=== PATIENT | female | born 1985 | race Caucasian/White ===

== ENCOUNTER 2020-02-13 07:33 | Observation (INO) | payer OTHER ==
--- NOTE | 2020-02-13 07:41 | ERPHSYRPT ---
- History of Present Illness Time Seen by Provider: 02/13/20 07:40 Historian: patient Exam Limitations: no limitations Physician History: This is a 34-year-old diabetic white female patient of Dr. Quach who presents with right upper quadrant abdominal pain described as sharp and burning without significant radiation and associated vomiting. Patient has had episodes in the past but not as bad as this 1. Within the last 2 years patient has had a negative gallbladder ultrasound and a normal HIDA scan. Patient has vomited several times since 11 PM last night. She denies chest pain, shortness of breath. She has had some diarrhea and bloating belching gassiness symptoms. Timing/Duration: yesterday Activities at Onset: none Quality: burning, sharpness Abdominal Pain Onset Location: RUQ Pain Radiation: no radiation Severity of Pain-Max: moderate Severity of Pain-Current: moderate Associated Symptoms: nausea, vomiting Previous symptoms: same symptoms as today Allergies/Adverse Reactions: No Known Drug Allergies Allergy (Verified 02/13/20 07:48) Home Medications: Citalopram Hydrobromide 20 mg* [ceLEXa 20 MG] 20 mg PO DAILY 07/23/19 [History] Metformin HCl 500 mg [Glucophage 500 MG] 500 mg PO BIDWM 07/23/19 [History] PANTOPRAZOLE 40 mg Tablet [Protonix 40MG Tablet] 40 mg PO QAM 02/13/20 [History] Semaglutide [Ozempic] 0.25 mg SQ WEEKLY 02/13/20 [History] Hx Influenza Vaccination/Date Given: No Travel Risk - International Travel Have you traveled outside of the country in past 3 weeks: No - Coronavirus Screening Are you exhibiting any of the following symptoms?: Yes Symptoms: Vomiting/Diarrhea Close contact with a COVID-19 positive Pt in past 14-21 Days: No - Review of Systems Constitutional: No Symptoms Eyes: No Symptoms Ears, Nose, & Throat: No Symptoms Respiratory: No Symptoms Cardiac: No Symptoms Abdominal/Gastrointestinal: Abdominal Pain, Nausea, Vomiting, Diarrhea Genitourinary Symptoms: No Symptoms Musculoskeletal: No Symptoms Skin: No Symptoms Neurological: No Symptoms Psychological: No Symptoms Endocrine: No Symptoms Hematologic/Lymphatic: No Symptoms Immunological/Allergic: No Symptoms All Other Systems: Reviewed and Negative - Past Medical History Pertinent Past Medical History: Yes Neurological History: No Pertinent History ENT History: Other Cardiac History: No Pertinent History Respiratory History: No Pertinent History Endocrine Medical History: Diabetes Type II Musculoskeletal History: No Pertinent History GI Medical History: No Pertinent History History: No Pertinent History Psycho-Social History: No Pertinent History Female Reproductive Disorders: No Pertinent History Other Medical History: sinus problems - Past Surgical History Past Surgical History: Yes Female Surgical History: Section Other Surgical History: sinus surgery - Social History Smoking Status: Never smoker Exposure to second hand smoke: No Drug Use: none Patient Lives Alone: No - Nursing Vital Signs Nursing Vital Signs: Initial Vital Signs Temperature 97.9 F 02/13/20 07:36 Pulse Rate 97 H 02/13/20 07:36 Respiratory Rate 20 02/13/20 07:36 Blood Pressure 123/87 02/13/20 07:36 O2 Sat by Pulse Oximetry 99 02/13/20 07:36 Pain Scale Pain Intensity 7 - Physical Exam General Appearance: mild distress, alert, anxiety Eye Exam: PERRL/EOMI, eyes nml inspection Ears, Nose, Throat Exam: normal ENT inspection, moist mucous membranes Neck Exam: normal inspection, non-tender, supple, full range of motion Respiratory Exam: normal breath sounds, lungs clear, airway intact, No chest tenderness, No respiratory distress Cardiovascular Exam: regular rate/rhythm, normal heart sounds, normal peripheral pulses Gastrointestinal/Abdomen Exam: soft, normal bowel sounds, tenderness (Right upper quadrant) Pelvic Exam: not done Rectal Exam: not done Back Exam: normal inspection, normal range of motion, No CVA tenderness, No vertebral tenderness Extremity Exam: normal inspection, normal range of motion, pelvis stable Neurologic Exam: alert, oriented x 3, 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, 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 as tested Skin Exam: normal color, warm, dry Lymphatic Exam: No adenopathy SpO2 Interpretation: normal O2 Delivery: Room Air - Course Nursing assessment & vital signs reviewed: Yes Ordered Tests: Active Orders 24 hr Category Date Time Status IV Insertion STAT Care 02/13/20 07:42 Active NPO (ED) STAT Care 02/13/20 07:42 Active ABDOMEN AND PELVIS W/0 CONTRAS [CT] Stat Exams 02/13/20 07:41 Completed GALLBLADDER [US] Stat Exams 02/13/20 08:41 Completed HEPATOBILIARY W/CCK [NUCMED] Stat Exams 02/13/20 08:40 Completed AMYLASE Stat Lab 02/13/20 07:46 Completed CBC W DIFF Stat Lab 02/13/20 07:46 Completed CMP Stat Lab 02/13/20 07:46 Completed HCG,QUALITATIVE URINE Stat Lab 02/13/20 07:51 Completed LIPASE Stat Lab 02/13/20 07:46 Completed Lactic Acid Stat Lab 02/13/20 07:41 Completed UA W/RFX UR CULTURE Stat Lab 02/13/20 07:51 Completed Transfer Order Routine Transfer 02/13/20 Ordered Medication Summary Discontinued Medications Generic Name Dose Route Start Last Admin Trade Name Freq PRN Reason Stop Dose Admin Hydromorphone HCl 1 mg 02/13/20 07:49 02/13/20 07:57 Hydromorphone 1 Mg/Ml Ampule IV 02/13/20 07:50 1 mg STAT ONE Administration Hydromorphone HCl Confirm 02/13/20 07:51 Hydromorphone 1 Mg/Ml Ampule Administered 02/13/20 07:52 Dose 1 mg .ROUTE .STK-MED ONE Sodium Chloride 1,000 mls @ 999 mls/hr 02/13/20 07:42 02/13/20 09:14 Sodium Chloride 0.9% 1000 Ml IV 02/13/20 08:42 Infused .Q1H1M STA Infusion Sodium Chloride Confirm 02/13/20 07:51 Sodium Chloride 0.9% 1000 Ml Administered 02/13/20 07:52 Dose 1,000 mls @ ud .ROUTE .STK-MED ONE Ondansetron HCl 4 mg 02/13/20 07:42 02/13/20 07:58 Zofran 4 Mg/2 Ml Vial IV 02/13/20 07:43 4 mg STAT ONE Administration Ondansetron HCl Confirm 02/13/20 07:51 Zofran 4 Mg/2 Ml Vial Administered 02/13/20 07:52 Dose 4 mg .ROUTE .STK-MED ONE Ondansetron HCl 4 mg 02/13/20 15:22 02/13/20 15:47 Zofran 4 Mg/2 Ml Vial IV 02/13/20 15:23 4 mg STAT ONE Administration Pantoprazole Sodium 40 mg 02/13/20 07:48 02/13/20 07:58 Protonix 40 Mg Iv IV 02/13/20 07:49 40 mg STAT ONE Administration Pantoprazole Sodium Confirm 02/13/20 07:51 Protonix 40 Mg Iv Administered 02/13/20 07:52 Dose 40 mg IV .STK-MED ONE Lab/Rad Data: Laboratory Result Diagrams 02/13/20 07:46 02/13/20 07:46 Laboratory Results 02/13/20 02/13/20 02/13/20 Range/Units 07:51 07:51 07:46 WBC (4.0-10.5) K/mm3 RBC (4.1-5.4) M/mm3 Hgb (12.0-16.0) gm/dl Hct (35-47) % MCV (78-100) fl MCH (26-32) pg MCHC (32-36) g/dl RDW (11.5-14.0) % Plt Count (150-450) K/mm3 MPV (7.5-11.0) fl Gran % (36.0-66.0) % Eos # (Auto) (0-0.5) Absolute Lymphs (auto) (1.0-4.6) Absolute Monos (auto) (0.0-1.3) Lymphocytes % (24.0-44.0) % Monocytes % (0.0-12.0) % Eosinophils % (0.00-5.0) % Basophils % (0.0-0.4) % Absolute Granulocytes (1.4-6.9) Basophils # (0-0.4) Sodium 138 (137-145) mmol/L Potassium 4.0 (3.5-5.1) mmol/L Chloride 104 (98-107) mmol/L Carbon Dioxide 25 (22-30) mmol/L Anion Gap 11.7 (5-15) MEQ/L BUN 6 L (7-17) mg/dL Creatinine 0.63 (0.52-1.04) mg/dL Estimated GFR > 60.0 ML/MIN Glucose 100 (74-106) mg/dL Lactic Acid (0.4-2.0) Calcium 9.9 (8.4-10.2) mg/dL Total Bilirubin 0.70 (0.2-1.3) mg/dL AST 33 (14-36) U/L ALT 30 (0-35) U/L Alkaline Phosphatase 78 (38-126) U/L Serum Total Protein 7.7 (6.3-8.2) g/dL Albumin 4.6 (3.5-5.0) g/dL Amylase 71 (30-110) U/L Lipase 64 (23-300) U/L Urine Color YELLOW (YELLOW) Urine Appearance SLIGHTLY CLOUDY (CLEAR) Urine pH 6.0 (5-6) Ur Specific [place] 1.021 (1.005-1.025) Urine Protein 30 (Negative) Urine Ketones SMALL (NEGATIVE) Urine Blood NEGATIVE (0-5) Ricardo/ul Urine Nitrite NEGATIVE (NEGATIVE) Urine Bilirubin NEGATIVE (NEGATIVE) Urine Urobilinogen 2 (0-1) mg/dL Ur Leukocyte Esterase NEGATIVE (NEGATIVE) Urine WBC (Auto) 0-2 (0-5) /HPF Urine RBC (Auto) 0-2 (0-2) /HPF U Epithel Cells (Auto) RARE (FEW) /HPF Urine Bacteria (Auto) NONE (NEGATIVE) /HPF Amorphous Crystals FEW (NEGATIVE) /HPF Urine Mucus (Auto) MANY (NEGATIVE) /HPF Urine Culture Reflexed NO (NO) Urine Glucose NEGATIVE (NEGATIVE) mg/dL Urine HCG, Qual NEGATIVE (Negative) 02/13/20 02/13/20 Range/Units 07:46 07:41 WBC 8.0 (4.0-10.5) K/mm3 RBC 5.26 (4.1-5.4) M/mm3 Hgb 14.5 (12.0-16.0) gm/dl Hct 44.1 (35-47) % MCV 83.8 (78-100) fl MCH 27.6 (26-32) pg MCHC 32.9 (32-36) g/dl RDW 13.7 (11.5-14.0) % Plt Count 244 (150-450) K/mm3 MPV 11.0 (7.5-11.0) fl Gran % 80.7 H (36.0-66.0) % Eos # (Auto) 0.12 (0-0.5) Absolute Lymphs (auto) 1.10 (1.0-4.6) Absolute Monos (auto) 0.31 (0.0-1.3) Lymphocytes % 13.8 L (24.0-44.0) % Monocytes % 3.9 (0.0-12.0) % Eosinophils % 1.5 (0.00-5.0) % Basophils % 0.1 (0.0-0.4) % Absolute Granulocytes 6.46 (1.4-6.9) Basophils # 0.01 (0-0.4) Sodium (137-145) mmol/L Potassium (3.5-5.1) mmol/L Chloride (98-107) mmol/L Carbon Dioxide (22-30) mmol/L Anion Gap (5-15) MEQ/L BUN (7-17) mg/dL Creatinine (0.52-1.04) mg/dL Estimated GFR ML/MIN Glucose (74-106) mg/dL Lactic Acid 0.9 (0.4-2.0) Calcium (8.4-10.2) mg/dL Total Bilirubin (0.2-1.3) mg/dL AST (14-36) U/L ALT (0-35) U/L Alkaline Phosphatase (38-126) U/L Serum Total Protein (6.3-8.2) g/dL Albumin (3.5-5.0) g/dL Amylase (30-110) U/L Lipase (23-300) U/L Urine Color (YELLOW) Urine Appearance (CLEAR) Urine pH (5-6) Ur Specific [place] (1.005-1.025) Urine Protein (Negative) Urine Ketones (NEGATIVE) Urine Blood (0-5) Ricardo/ul Urine Nitrite (NEGATIVE) Urine Bilirubin (NEGATIVE) Urine Urobilinogen (0-1) mg/dL Ur Leukocyte Esterase (NEGATIVE) Urine WBC (Auto) (0-5) /HPF Urine RBC (Auto) (0-2) /HPF U Epithel Cells (Auto) (FEW) /HPF Urine Bacteria (Auto) (NEGATIVE) /HPF Amorphous Crystals (NEGATIVE) /HPF Urine Mucus (Auto) (NEGATIVE) /HPF Urine Culture Reflexed (NO) Urine Glucose (NEGATIVE) mg/dL Urine HCG, Qual (Negative) - Progress Progress: improved, pain not gone completely, re-examined Progress Note: 02/13/20 09:16 CAT scan of the abdomen pelvis reveals a small hiatal hernia. No other acute intra-abdominal abnormalities appreciated 02/13/20 16:04 Medical decision making: This patient has right upper quad abdominal pain with nausea vomiting bloating belching gassy symptoms. Her CAT scan did not show anything acute. The gallbladder ultrasound did not show any evidence of any acute cholecystitis and there is no cholelithiasis present. The HIDA scan performed today re-created her symptoms. In addition, her HIDA scan gallbladder ejection fraction was 15% which is much lower than the 50% on a prior HIDA scan approximately a year and a half ago. Patient would like us to contact the surgeon to see if it is possible for her gallbladder removed sooner rather than later. We put a call into Dr. Bari Barrera, general surgeon. He is in surgery at this time and he will call us back. Discussed with : Other (floyd barrera) Counseled pt/family regarding: lab results, diagnosis, need for follow-up, rad results - Departure Departure Disposition: Observation Clinical Impression: Dyskinesia of gallbladder Condition: Stable Critical Care Time: No Referrals: PATRICIA QUACH MD [Primary Care Provider] -
[2020-02-13] MEDS ORDERED: Zofran 4 MG/2 ML VIAL IV ONE ×2 (07:42→15:22)
[2020-02-13] MEDS ORDERED: Sodium Chloride 0.9% 1000 ML 1,000 ML IV STA (07:42)
[2020-02-13] MEDS ORDERED: PROTONIX 40 MG IV IV ONE ×3 (07:48→17:44)
[2020-02-13] MEDS ORDERED: Hydromorphone 1 mg/ml Ampule IV ONE (07:49)
[2020-02-13] MEDS ORDERED: Hydromorphone 1 mg/ml Ampule ONE (07:51)
[2020-02-13] MEDS ORDERED: Zofran 4 MG/2 ML VIAL ONE ×2 (07:51→17:44)
[2020-02-13] MEDS ORDERED: Sodium Chloride 0.9% 1000 ML 1,000 ML ONE ×2 (07:51→17:45)
[2020-02-13 07:58] LABS: Absolute Neutrophil Ct (ANC) 6.46 (1.4-6.9); BASOPHIL % 0.1 % (0.0-0.4); Basophil (Absolute #) 0.01 (0-0.4); Eosinophil % 1.5 % (0.00-5.0); Eosinophil (Absolute #) 0.12 (0-0.5); Hematocrit 44.1 % (35-47); Hemoglobin 14.5 gm/dl (12.0-16.0); Lymphocytes % 13.8 % (24.0-44.0); Mean Cell Volume 83.8 fl (78-100); Mean Corpuscular Hemoglobin 27.6 pg (26-32); Mean Corpuscular Hgb Concent. 32.9 g/dl (32-36); Monocyte (Absolute #) 0.31 (0.0-1.3); Monocytes % 3.9 % (0.0-12.0); Neutrophil % 80.7 % (36.0-66.0); Platelet Count 244 K/mm3 (150-450); Red Blood Count 5.26 M/mm3 (4.1-5.4); Red Cell Distribution Width 13.7 % (11.5-14.0)
[2020-02-13 08:04] LABS: Amourphous Crystal FEW /HPF (NEGATIVE); Appearance SLIGHTLY CLOUDY (CLEAR); Bilirubin NEGATIVE (NEGATIVE); Blood NEGATIVE Ery/ul (0-5); Epithelial Cells RARE /HPF (FEW); Glucose NEGATIVE (NEGATIVE); Ketones SMALL (NEGATIVE); Leukocyte Esterase NEGATIVE (NEGATIVE); Mucus MANY /HPF (NEGATIVE); Nitrite NEGATIVE (NEGATIVE); Protein,Urine Dip 30 (Negative); RBC 0-2 /HPF (0-2); Specific Gravity 1.021 (1.005-1.025); Urobilinogen 2 mg/dL (0-1); WBC 0-2 /HPF (0-5)
[2020-02-13 08:08] LABS: ALBUMIN 4.6 g/dL (3.5-5.0); ALKALINE PHOSPHATASE 78 U/L (38-126); AMYLASE 71 U/L (30-110); ANION GAP 11.7 MEQ/L (5-15); BLOOD UREA NITROGEN 6 mg/dL (7-17); CHLORIDE 104 mmol/L (98-107); Calcium 9.9 mg/dL (8.4-10.2); Carbon Dioxide 25 mmol/L (22-30); Creatinine 1 0.63 mg/dL (0.52-1.04); EST GLOMERULAR FILTRATION RATE > 60.0 ML/MIN; Glucose 100 mg/dL (74-106); LIPASE 64 U/L (23-300); SGOT/AST 33 U/L (14-36); SGPT/ALT 30 U/L (0-35); SODIUM 138 mmol/L (137-145); Total Protein 7.7 g/dL (6.3-8.2)
--- NOTE | 2020-02-13 08:38 | XRAY ---
Indication: Right upper quadrant pain and vomiting. Multiple contiguous axial images obtained through the abdomen and pelvis without contrast as ordered. Comparison: None Lung bases are clear. Heart is not enlarged. Small hiatal hernia. Noncontrasted stomach and bowel loops appear nonobstructed. Normal appendix. No free fluid/air. Fatty liver and a few phleboliths. Remaining liver, gallbladder, pancreas, spleen, adrenal glands, kidneys, ureters, bladder, uterus, and aorta appear unremarkable for noncontrast exam. Osseous structures intact. Impression: 1. Small hiatal hernia and fatty liver. 2. Remaining CT abdomen/pelvis without contrast exam is negative.
--- NOTE | 2020-02-13 09:27 | XRAY ---
Indication: Right upper quadrant pain. Nausea and vomiting. Two-dimensional gallbladder sonogram performed. Comparison: None Pancreas not well-seen due to overlying bowel gas. Gallbladder normally distended without gallstones, wall thickening, or pericholecystic fluid. Common bile duct measures 4.1 mm. No intrahepatic biliary distention. Mild fatty echogenic liver without focal solid/cystic mass or ascites. Right kidney measures 10.3 cm in length and sonographically normal. Impression: Pancreas not well visualized. Fatty liver. Remaining gallbladder sonogram is negative.
--- NOTE | 2020-02-13 15:26 | XRAY ---
Indication: Right upper quadrant pain. Nausea and vomiting. Negative gallbladder sonogram. Comparison: None Patient received 5.8 mCi technetium 99 Choletec. Immediate anterior planar imaging was performed for 60 minutes. Normal hepatic activity on the first image. Normal biliary activity within 20 minutes. Normal gallbladder activity within 30 minutes. Normal biliary to bowel activity within 50 minutes. Patient then received 1.5 g of IV CCK slowly. Ejection fraction calculated 15%, low. Impression: 1. HIDA scan portion of the exam is normal. 2. Low ejection fraction 15%. Rule out chronic cholecystitis.
[2020-02-13] MEDS ORDERED: Sodium Chloride 0.9% 1000 ML 1,000 ML IV SCH (17:36)
[2020-02-13] MEDS ORDERED: Zofran 4 MG/2 ML VIAL IV PRN (17:36)
[2020-02-13] MEDS ORDERED: Phenergan 25 MG INJ ONE (18:21)
[2020-02-13] MEDS ORDERED: Phenergan 25 MG INJ IV PRN (18:21)
[2020-02-13] MEDS ORDERED: TYLENOL 325 MG ONE (18:24)
[2020-02-13] MEDS: DILAUDID 2 MG INJECTION IV PRN (18:32)
[2020-02-13] MEDS ORDERED: TYLENOL 325 MG PO PRN (18:36)
[2020-02-14] MEDS ORDERED: Lactated Ringers 1,000 ML IV SCH (06:00)
[2020-02-14] MEDS ORDERED: MEFOXIN 2 GM PREMIX** 2 GM/50 ML ML IV SCH (06:00)
[2020-02-14] MEDS ORDERED: Versed 2 MG/2 ML Injection ONE (07:37)
[2020-02-14] MEDS ORDERED: Zemuron 100 MG/10 ML ONE (07:37)
[2020-02-14] MEDS ORDERED: SUBLIMAZE 250 MCG/5 ML ONE (07:37)
[2020-02-14] MEDS ORDERED: DIPRIVAN 200 MG/20 ML IV ONE (07:37)
--- NOTE | 2020-02-14 08:10 | PCM.HP ---
History of Present Illness - Chief Complaint Chief Complaint: SYMPTOMATIC GALLBLADDER DYSKINESIA History of Present Illness: hx per chart review and d/w patient. 34yo dm2 th ruq pain, nausea nbnb emesis, through sunday worsened went to ed for workup. pain on exam, ct ok, us ok, labs ok, hida reproduced sx. after dilaudid phenergan last night pain finally improved. some present still. 1 year ago ruq pain with gerd issues somewhat similar. started PPI and sx totally resolved. US and hida negative at that time. no prior scopes per ed note. "This is a 34-year-old diabetic white female patient of Dr. Quach who presents with right upper quadrant abdominal pain described as sharp and burning without significant radiation and associated vomiting. Patient has had episodes in the past but not as bad as this 1. Within the last 2 years patient has had a negative gallbladder ultrasound and a normal HIDA scan. Patient has vomited several times since 11 PM last night. She denies chest pain, shortness of breath. She has had some diarrhea and bloating belching gassiness symptoms. Timing/Duration: yesterday Activities at Onset: none Quality: burning, sharpness Abdominal Pain Onset Location: RUQ Pain Radiation: no radiation Severity of Pain-Max: moderate Severity of Pain-Current: moderate Associated Symptoms: nausea, vomiting Previous symptoms: same symptoms as today Allergies/Adverse Reactions: No Known Drug Allergies Allergy (Verified 02/13/20 07:48) Home Medications: Citalopram Hydrobromide 20 mg* [ceLEXa 20 MG] 20 mg PO DAILY 07/23/19 [History] Metformin HCl 500 mg [Glucophage 500 MG] 500 mg PO BIDWM 07/23/19 [History] PANTOPRAZOLE 40 mg Tablet [Protonix 40MG Tablet] 40 mg PO QAM 02/13/20 [History] Semaglutide [Ozempic] 0.25 mg SQ WEEKLY 02/13/20 [History] Hx Influenza Vaccination/Date Given: No Travel Risk - International Travel Have you traveled outside of the country in past 3 weeks: No - Coronavirus Screening Are you exhibiting any of the following symptoms?: Yes Symptoms: Vomiting/Diarrhea Close contact with a COVID-19 positive Pt in past 14-21 Days: No - Review of Systems Constitutional: No Symptoms Eyes: No Symptoms Ears, Nose, & Throat: No Symptoms Respiratory: No Symptoms Cardiac: No Symptoms Abdominal/Gastrointestinal: Abdominal Pain, Nausea, Vomiting, Diarrhea Genitourinary Symptoms: No Symptoms Musculoskeletal: No Symptoms Skin: No Symptoms Neurological: No Symptoms Psychological: No Symptoms Endocrine: No Symptoms Hematologic/Lymphatic: No Symptoms Immunological/Allergic: No Symptoms All Other Systems: Reviewed and Negative - Past Medical History Pertinent Past Medical History: Yes Neurological History: No Pertinent History ENT History: Other Cardiac History: No Pertinent History Respiratory History: No Pertinent History Endocrine Medical History: Diabetes Type II Musculoskeletal History: No Pertinent History GI Medical History: No Pertinent History History: No Pertinent History Psycho-Social History: No Pertinent History Female Reproductive Disorders: No Pertinent History Other Medical History: sinus problems - Past Surgical History Past Surgical History: Yes Female Surgical History: Section Other Surgical History: sinus surgery - Social History Smoking Status: Never smoker Exposure to second hand smoke: No Drug Use: none Patient Lives Alone: No Medications & Allergies Home Medications: Home Medication List Citalopram Hydrobromide 20 mg* [ceLEXa 20 MG] 20 mg PO HS 07/23/19 [History Confirmed 02/13/20] Metformin HCl 500 mg [Glucophage 500 MG] 1,000 mg PO DAILY 07/23/19 [History Confirmed 02/13/20] PANTOPRAZOLE 40 mg Tablet [Protonix 40MG Tablet] 40 mg PO QAM 02/13/20 [History Confirmed 02/13/20] Semaglutide [Ozempic] 0.25 mg SQ WEEKLY 02/13/20 [History Confirmed 02/13/20] Allergies/Adverse Reactions: Allergies Allergy/AdvReac Type Severity Reaction Status Date / Time No Known Drug Allergies Allergy Verified 02/13/20 07:48 - Past Medical History Past Medical History: Yes Neurological History: No Pertinent History ENT History: Other Cardiac History: No Pertinent History Respiratory History: No Pertinent History Endocrine Medical History: Diabetes Type II Musculoskelatal History: No Pertinent History GI Medical History: GERD History: No Pertinent History Pyscho-Social History: Anxiety Reproductive Disorders: No Pertinent History Comment: sinus problems - Female History Hx Last Menstrual Period: injection Are you now?: No - Past Surgical History Past Surgical History: Yes Neuro Surgical History: No Pertinent History Cardiac History: No Pertinent History Respiratory Surgery: No Pertinent History GI Surgical History: No Pertinent History Female Surgical History: Section Other Surgical History: sinus surgery - Social History Smoking Status: Never smoker Exposure to second hand smoke: No Alcohol: Occasionally Drug Use: none - Physical Exam Vital Signs: Vital Signs - 24 hr Temp Pulse Resp BP Pulse Ox 02/14/20 07:19 97.8 F 66 16 102/50 97 02/14/20 06:40 97.4 F 69 16 102/50 96 02/14/20 06:00 97.4 F 69 16 96 02/14/20 04:05 97.4 F 69 16 87/52 96 02/14/20 04:00 16 02/14/20 03:41 16 102/55 02/14/20 00:00 16 02/13/20 23:49 97.4 F 67 16 102/55 96 02/13/20 20:00 14 02/13/20 18:01 98.3 F 66 20 133/78 97 02/13/20 17:43 98.3 F 66 20 133/78 97 02/13/20 16:03 97.6 F 71 18 127/91 98 02/13/20 15:20 75 18 127/91 99 02/13/20 13:12 63 15 111/75 98 02/13/20 12:45 63 16 110/76 97 02/13/20 11:02 97.6 F 66 18 112/79 98 02/13/20 10:07 97.6 F 71 20 121/80 97 02/13/20 09:12 97.8 F 71 18 112/76 98 General Appearance: no apparent distress, obese Neurologic Exam: alert, oriented x 3 Eye Exam: No scleral icterus Neck Exam: normal inspection Respiratory Exam: No respiratory distress, No accessory muscle use Cardiovascular Exam: regular rate/rhythm, No edema Gastrointestinal/Abdomen Exam: soft, tenderness, No distention, No organomegaly Pelvic Exam: not done Extremity Exam: normal inspection Skin Exam: normal color, warm, dry (abd obese, mild ttp ruq no r/g. no rudolph.) Results - Labs Lab/Micro Results: Lab Results-Last 24 Hours 02/13/20 02/13/20 02/13/20 Range/Units 07:46 07:51 07:51 Sodium 138 (137-145) mmol/L Potassium 4.0 (3.5-5.1) mmol/L Chloride 104 (98-107) mmol/L Carbon Dioxide 25 (22-30) mmol/L Anion Gap 11.7 (5-15) MEQ/L BUN 6 L (7-17) mg/dL Creatinine 0.63 (0.52-1.04) mg/dL Estimated GFR > 60.0 ML/MIN Glucose 100 (74-106) mg/dL Calcium 9.9 (8.4-10.2) mg/dL Total Bilirubin 0.70 (0.2-1.3) mg/dL AST 33 (14-36) U/L ALT 30 (0-35) U/L Alkaline Phosphatase 78 (38-126) U/L Serum Total Protein 7.7 (6.3-8.2) g/dL Albumin 4.6 (3.5-5.0) g/dL Amylase 71 (30-110) U/L Lipase 64 (23-300) U/L Urine Color YELLOW (YELLOW) Urine Appearance SLIGHTLY CLOUDY (CLEAR) Urine pH 6.0 (5-6) Ur Specific [place] 1.021 (1.005-1.025) Urine Protein 30 (Negative) Urine Ketones SMALL (NEGATIVE) Urine Blood NEGATIVE (0-5) Ricardo/ul Urine Nitrite NEGATIVE (NEGATIVE) Urine Bilirubin NEGATIVE (NEGATIVE) Urine Urobilinogen 2 (0-1) mg/dL Ur Leukocyte Esterase NEGATIVE (NEGATIVE) Urine WBC (Auto) 0-2 (0-5) /HPF Urine RBC (Auto) 0-2 (0-2) /HPF U Epithel Cells (Auto) RARE (FEW) /HPF Urine Bacteria (Auto) NONE (NEGATIVE) /HPF Amorphous Crystals FEW (NEGATIVE) /HPF Urine Mucus (Auto) MANY (NEGATIVE) /HPF Urine Culture Reflexed NO (NO) Urine Glucose NEGATIVE (NEGATIVE) mg/dL Urine HCG, Qual NEGATIVE (Negative) - Radiology Impressions Radiology Exams & Impressions: Radiology Procedures Category Date Time Status ABDOMEN AND PELVIS W/0 CONTRAS [CT] Stat Exams 02/13/20 07:41 Completed GALLBLADDER [US] Stat Exams 02/13/20 08:41 Completed HEPATOBILIARY W/CCK [NUCMED] Stat Exams 02/13/20 08:40 Completed Assessment/Plan (1) Dyskinesia of gallbladder Current Visit: Yes Status: Acute Assessment & Plan: 34yo female ruq pain, nausea nbnb emesis, ed workup with ruq pain, normal labs, normal US, normal CT, HIDA reproduced symptoms and decreased EF. Had a similar episode a year ago workup negative but had gerd and improved with PPI. no gerd sx now on ppi. overnight pain improved with pain meds. -chronic cholecystitis with biliary dyskinesia. to or for cholecystectomy Code(s): K82.8 - OTHER SPECIFIED DISEASES OF GALLBLADDER
[2020-02-14] MEDS ORDERED: Lactated Ringers 1,000 ML IV ONE (08:26)
[2020-02-14] MEDS ORDERED: Sensorcaine 0.25% 10 ML ONE ×2 (08:26→08:35)
[2020-02-14] MEDS ORDERED: Decadron 4 MG INJ ONE (08:36)
[2020-02-14] MEDS ORDERED: Ephedrine Sulfate 50 MG/ML ONE (08:38)
[2020-02-14] MEDS ORDERED: Zofran 4 MG/2 ML VIAL ONE (08:57)
[2020-02-14] MEDS ORDERED: BRIDION 200MG/2ML IV ONE (09:01)
[2020-02-14] MEDS ORDERED: TORAdol 30 mg Injection ONE (09:28)
[2020-02-14] MEDS ORDERED: SUBLIMAZE 100 MCG/2 ML ONE (09:29)
[2020-02-14] MEDS ORDERED: PROTONIX 40 MG IV IV SCH (10:00)
[2020-02-14] MEDS: DILAUDID 2 MG INJECTION IV PRN ×3 (10:25→19:00)
[2020-02-14] MEDS ORDERED: NORCO 5/325 MG PO PRN (11:03)
[2020-02-14] MEDS ORDERED: NON-FORMULARY ITEM (Semaglutide [Ozempic] 0.25 MG) SQ SCH (11:15)
[2020-02-14 13:40] VITALS: BP 108/70; PULSE 101; O2SAT 94
[2020-02-14] MEDS ORDERED: ceLEXa 20 MG PO SCH (22:00)
[2020-02-15] MEDS ORDERED: Glucophage 500 MG PO SCH (10:00)
[2020-02-15] MEDS ORDERED: Protonix 40MG Tablet PO SCH (10:00)
--- NOTE | 2020-02-16 09:22 | OP ---
SURGERY DATE: 02/14/2020 SURGERY TIME: 810 PREOPERATIVE DIAGNOSIS: 1. CHRONIC CHOLECYSTITIS WITH BILIARY DYSKINESIA. POSTOPERATIVE DIAGNOSIS: 1. CHRONIC CHOLECYSTITIS WITH BILIARY DYSKINESIA. PROCEDURE: 1. Laparoscopic cholecystectomy. SURGEON: Bari Barrera M.D. ANESTHESIA: General. ESTIMATED BLOOD LOSS: 20 ml. CONDITION: Stable. COMPLICATIONS: None. SPECIMENS: 1. Gallbladder. HISTORY OF PRESENT ILLNESS: Patient is a 34 year-old female with the acute onset of right upper quadrant abdomen pain. She did have one episode around a year prior. She did have reflux symptoms at that time. She had an US and HIDA scan which are negative. She was started on a proton pump inhibitor and her symptoms resolved. She didn't have any more heartburn symptoms. One day prior to presentation, the patient developed acute nausea, vomiting, right upper quadrant abdominal pain. She was evaluated in the Emergency Department and had pain on exam. CT scan was normal. Labs were normal. US was normal. HIDA scan showed a reduced ejection fraction and reproduced her symptoms. Risks of infection, bleeding, injury to nearby structure, and hernia as well as nontherapeutic procedure with persistent symptoms was discussed with the patient. She elected to proceed. FINDINGS: Critical view obtained. DESCRIPTION OF PROCEDURE: The patient was brought to the OR. General anesthesia was induced. She was placed supine with arms out. Sequential compression devices were applied and on. She was routinely prepped and draped. She received a preoperative antibiotic. Time-out was performed. Veress needle was inserted in left upper quadrant. Opening pressure was 8. Pneumoperitoneum was established. A 5 mm Optiview trocar was placed in the left upper quadrant. Abdomen was examined. There was no apparent injury from Veress insertion. A 5 mm trocar was placed infraumbilically. Two additional 5 mm trocars were placed in the right upper quadrant. Gallbladder was retracted. There were some omental adhesions to the gallbladder which were taken down with cautery. The cystic duct/cystic artery were dissected out with L-hook cautery, [place], and blunt dissection. Critical view was clearly obtained. The cystic duct was taken 2 down and 1 up with 5 mm metal clip shoe repair cobbler. Cystic artery was taken 2 down and 1 up. Both were divided. The gallbladder was taken off the liver bed with cautery. The clips were in good position. There was good hemostasis. The gallbladder was then brought out the infraumbilical port site. It was spread lightly. There was a scant amount of bile seepage with the gallbladder removal. This was irrigated out. The gallbladder was sent to pathology. The infraumbilical site was closed with the 0 Vicryl suture passer. The right upper quadrant ports were removed under direct visualization. The left upper quadrant port was used for desufflation and then removed. Skin was reapproximated with 4-0 Vicryl suture. Steri-strips and sterile dressings were applied. All counts were correct. The patient tolerated the procedure well with extubation.
== END 2020-02-14 19:14 | disposition home or self-care (01) ==
LOC: ED 07:33 → MED SURG 17:35
PROVIDERS: ADMIT Surgery; ATTEND Surgery
DX: K81.1 Chronic cholecystitis (principal); K82.8 Other specified diseases of gallbladder; E11.9 Type 2 diabetes mellitus without complications; Z79.899 Other long term (current) drug therapy
CPT/HCPCS: 36415; 47562; 74176; 76705; 78227; 80053; 81001; 82150; 83605; 83690; 84703; 85025; 96360; 96374; 96375; 96376; 99285; A9537; G0378; J0694; J1100; J1170; J1885; J2250; J2405; J2550; J2704; J2805; J3010; A9270-GY

== ENCOUNTER 2020-05-06 17:40 | Emergency (ER) | payer OTHER ==
--- NOTE | 2020-05-06 17:45 | ERPHSYRPT ---
- History of Present Illness Time Seen by Provider: 05/06/20 17:45 Source: patient Exam Limitations: no limitations Physician History: This is a 35-year-old white female who is diabetic and has a history of gastroesophageal reflux disease and is status post cholecystectomy in February 2020 and presents with sudden onset of intermittent cardiac palpitations. They have lasted throughout the day today and she became concerned. Patient was started on Ozempic 2 months ago. There is no other new medications. Patient denies illicit drug use. She denies access caffeine use. Patient states that she has had no prior episodes of this type of palpitations. Patient does state that the Ozempic does give her diarrhea after she eats and was wondering whether or not she had no electrolyte issue. Patient states there is no chest pain per se she has no abdominal pain. Patient states she has no new stressors. Patient does have some anxiety which she is on medications for Timing/Duration: today Severity: mild Modifying Factors: Improves With: nothing Associated Symptoms: denies symptoms, No shortness of breath, No chest pain Allergies/Adverse Reactions: No Known Drug Allergies Allergy (Verified 02/13/20 07:48) Home Medications: Citalopram Hydrobromide 20 mg* [ceLEXa 20 MG] 20 mg PO HS 07/23/19 [History] Metformin HCl 500 mg [Glucophage 500 MG] 1,000 mg PO DAILY 07/23/19 [History] PANTOPRAZOLE 40 mg Tablet [Protonix 40MG Tablet] 40 mg PO QAM 02/13/20 [History] Semaglutide [Ozempic] 1 mg SQ WEEKLY 02/13/20 [History] Hx Tetanus, Diphtheria Vaccination/Date Given: Yes Hx Influenza Vaccination/Date Given: No Hx Pneumococcal Vaccination/Date Given: No Travel Risk - International Travel Have you traveled outside of the country in past 3 weeks: No - Coronavirus Screening Are you exhibiting any of the following symptoms?: No Close contact with a COVID-19 positive Pt in past 14-21 Days: No - Review of Systems Constitutional: No Symptoms Eyes: No Symptoms Ears, Nose, & Throat: No Symptoms Respiratory: No Symptoms Cardiac: Palpitations Abdominal/Gastrointestinal: No Symptoms Genitourinary Symptoms: No Symptoms Musculoskeletal: No Symptoms Skin: No Symptoms Neurological: No Symptoms Psychological: No Symptoms Endocrine: No Symptoms Hematologic/Lymphatic: No Symptoms Immunological/Allergic: No Symptoms All Other Systems: Reviewed and Negative - Past Medical History Pertinent Past Medical History: Yes Neurological History: No Pertinent History ENT History: Other Cardiac History: No Pertinent History Respiratory History: No Pertinent History Endocrine Medical History: Diabetes Type II Musculoskeletal History: No Pertinent History GI Medical History: GERD History: No Pertinent History Psycho-Social History: Anxiety Female Reproductive Disorders: No Pertinent History Other Medical History: sinus problems - Past Surgical History Past Surgical History: Yes Neuro Surgical History: No Pertinent History Cardiac: No Pertinent History Respiratory: No Pertinent History Gastrointestinal: No Pertinent History Female Surgical History: Section Other Surgical History: sinus surgery - Social History Smoking Status: Never smoker Exposure to second hand smoke: No Drug Use: none Patient Lives Alone: No - Nursing Vital Signs Nursing Vital Signs: Initial Vital Signs Temperature 98 F 05/06/20 17:41 Pulse Rate 80 05/06/20 17:41 Respiratory Rate 16 05/06/20 17:41 O2 Sat by Pulse Oximetry 98 05/06/20 17:41 Pain Scale Pain Intensity 0 - Physical Exam General Appearance: no apparent distress, alert, anxiety Eye Exam: PERRL/EOMI, eyes nml inspection Ears, Nose, Throat Exam: normal ENT inspection, moist mucous membranes Neck Exam: normal inspection, non-tender, supple, full range of motion Respiratory Exam: normal breath sounds, lungs clear, airway intact, No chest tenderness, No respiratory distress Cardiovascular Exam: regular rate/rhythm, normal heart sounds, normal peripheral pulses Gastrointestinal/Abdomen Exam: soft, normal bowel sounds, No tenderness Pelvic Exam: not done Rectal Exam: not done Back Exam: normal inspection, normal range of motion, CVA tenderness Extremity Exam: normal inspection, normal range of motion, pelvis stable Neurologic Exam: alert, oriented x 3, cooperative, yard coordinator II-XII nml as tested, nml cerebellar function, nml station & gait, sensation nml Skin Exam: normal color, warm, dry Lymphatic Exam: No adenopathy SpO2 Interpretation: normal O2 Delivery: Room Air - Course Nursing assessment & vital signs reviewed: Yes EKG Interpreted by Me: RATE (82), Sinus Rhythm, Other (No acute ischemic changes. No comparison EKG available at this time.) Ordered Tests: Active Orders 24 hr Category Date Time Status Film Developer STAT Care 05/06/20 17:54 Active EKG-ER Only STAT Care 05/06/20 17:53 Active IV Insertion STAT Care 05/06/20 17:53 Active Pulse Oximetry (ED) STAT Care 05/06/20 17:53 Active CHEST 1 VIEW (PORTABLE) Stat Exams 05/06/20 18:13 Taken CHEST WITH CONTRAST [CT] Stat Exams 05/06/20 18:54 Taken CBC W DIFF Stat Lab 05/06/20 18:15 Completed CMP Stat Lab 05/06/20 18:15 Completed D-DIMER QUANTITATIVE Stat Lab 05/06/20 18:15 Completed HCG,QUALITATIVE URINE Stat Lab 05/06/20 18:00 Completed MAGNESIUM Stat Lab 05/06/20 18:15 Completed NT PRO BNP Stat Lab 05/06/20 18:15 Completed T4 (Thyroxine) Stat Lab 05/06/20 18:15 Completed TROPONIN Q3H Lab 05/06/20 18:15 Completed TROPONIN Q3H Lab 05/07/20 00:00 Ordered TROPONIN Q3H Lab 05/07/20 03:00 Ordered TROPONIN Q3H Lab 05/07/20 06:00 Ordered TSH [TSH, 3RD Generation] Stat Lab 05/06/20 18:15 Completed UA W/RFX UR CULTURE Stat Lab 05/06/20 17:59 Completed Urine Triage Profile Stat Lab 05/06/20 17:59 Completed Holter Monitor ONCE RT 05/06/20 21:29 Active Medication Summary Discontinued Medications Generic Name Dose Route Start Last Admin Trade Name Freq PRN Reason Stop Dose Admin Sodium Chloride 500 mls @ 500 mls/hr 05/06/20 20:02 05/06/20 20:18 Sodium Chloride 0.9% 500 Ml IV 05/06/20 21:01 500 mls/hr .Q1H ONE Administration Sodium Chloride Confirm 05/06/20 20:18 Sodium Chloride 0.9% 500 Ml Administered 05/06/20 20:19 Dose 500 mls @ ud IV .STK-MED ONE Lab/Rad Data: Laboratory Result Diagrams 05/06/20 18:15 05/06/20 18:15 Laboratory Results 05/06/20 05/06/20 05/06/20 Range/Units 18:15 18:15 18:15 WBC (4.0-10.5) K/mm3 RBC (4.1-5.4) M/mm3 Hgb (12.0-16.0) gm/dl Hct (35-47) % MCV (78-100) fl MCH (26-32) pg MCHC (32-36) g/dl RDW (11.5-14.0) % Plt Count (150-450) K/mm3 MPV (7.5-11.0) fl Gran % (36.0-66.0) % Eos # (Auto) (0-0.5) Absolute Lymphs (auto) (1.0-4.6) Absolute Monos (auto) (0.0-1.3) Lymphocytes % (24.0-44.0) % Monocytes % (0.0-12.0) % Eosinophils % (0.00-5.0) % Basophils % (0.0-0.4) % Absolute Granulocytes (1.4-6.9) Basophils # (0-0.4) D-Dimer 686 H* (215-500) ng/mL Sodium (137-145) mmol/L Potassium (3.5-5.1) mmol/L Chloride (98-107) mmol/L Carbon Dioxide (22-30) mmol/L Anion Gap (5-15) MEQ/L BUN (7-17) mg/dL Creatinine (0.52-1.04) mg/dL Estimated GFR ML/MIN Glucose (74-106) mg/dL Calcium (8.4-10.2) mg/dL Magnesium (1.6-2.3) mg/dL Total Bilirubin (0.2-1.3) mg/dL AST (14-36) U/L ALT (0-35) U/L Alkaline Phosphatase (38-126) U/L Troponin I < 0.012 (0.000-0.034) ng/mL NT-Pro-B Natriuret Pep (0-450) pg/mL Serum Total Protein (6.3-8.2) g/dL Albumin (3.5-5.0) g/dL Thyroxine (T4) 12.0 H (5.53-10.96) ug/dL TSH 3rd Generation 2.720 (0.47-4.68) mIU/L Urine Color (YELLOW) Urine Appearance (CLEAR) Urine pH (5-6) Ur Specific [place] (1.005-1.025) Urine Protein (Negative) Urine Ketones (NEGATIVE) Urine Blood (0-5) Ricardo/ul Urine Nitrite (NEGATIVE) Urine Bilirubin (NEGATIVE) Urine Urobilinogen (0-1) mg/dL Ur Leukocyte Esterase (NEGATIVE) Urine WBC (Auto) (0-5) /HPF Urine RBC (Auto) (0-2) /HPF U Epithel Cells (Auto) (FEW) /HPF Urine Bacteria (Auto) (NEGATIVE) /HPF Urine Mucus (Auto) (NEGATIVE) /HPF Urine Culture Reflexed (NO) Urine Glucose (NEGATIVE) mg/dL Urine HCG, Qual (Negative) Urine Opiates Level (NEGATIVE) Ur Methadone (NEGATIVE) Urine Barbiturates (NEGATIVE) Ur Phencyclidine (PCP) (NEGATIVE) Urine Amphetamine (NEGATIVE) U Benzodiazepine Level (NEGATIVE) Urine Cocaine (NEGATIVE) Urine Marijuana (THC) (NEGATIVE) 05/06/20 05/06/20 05/06/20 Range/Units 18:15 18:15 18:00 WBC 6.8 (4.0-10.5) K/mm3 RBC 5.02 (4.1-5.4) M/mm3 Hgb 13.9 (12.0-16.0) gm/dl Hct 42.3 (35-47) % MCV 84.3 (78-100) fl MCH 27.7 (26-32) pg MCHC 32.9 (32-36) g/dl RDW 13.4 (11.5-14.0) % Plt Count 214 (150-450) K/mm3 MPV 11.1 H (7.5-11.0) fl Gran % 68.4 H (36.0-66.0) % Eos # (Auto) 0.11 (0-0.5) Absolute Lymphs (auto) 1.75 (1.0-4.6) Absolute Monos (auto) 0.28 (0.0-1.3) Lymphocytes % 25.8 (24.0-44.0) % Monocytes % 4.1 (0.0-12.0) % Eosinophils % 1.6 (0.00-5.0) % Basophils % 0.1 (0.0-0.4) % Absolute Granulocytes 4.64 (1.4-6.9) Basophils # 0.01 (0-0.4) D-Dimer (215-500) ng/mL Sodium 137 (137-145) mmol/L Potassium 3.7 (3.5-5.1) mmol/L Chloride 103 (98-107) mmol/L Carbon Dioxide 27 (22-30) mmol/L Anion Gap 10.4 (5-15) MEQ/L BUN 6 L (7-17) mg/dL Creatinine 0.70 (0.52-1.04) mg/dL Estimated GFR > 60.0 ML/MIN Glucose 83 (74-106) mg/dL Calcium 9.8 (8.4-10.2) mg/dL Magnesium 1.9 (1.6-2.3) mg/dL Total Bilirubin 0.50 (0.2-1.3) mg/dL AST 24 (14-36) U/L ALT 19 (0-35) U/L Alkaline Phosphatase 80 (38-126) U/L Troponin I (0.000-0.034) ng/mL NT-Pro-B Natriuret Pep 24.4 (0-450) pg/mL Serum Total Protein 7.3 (6.3-8.2) g/dL Albumin 4.3 (3.5-5.0) g/dL Thyroxine (T4) (5.53-10.96) ug/dL TSH 3rd Generation (0.47-4.68) mIU/L Urine Color (YELLOW) Urine Appearance (CLEAR) Urine pH (5-6) Ur Specific [place] (1.005-1.025) Urine Protein (Negative) Urine Ketones (NEGATIVE) Urine Blood (0-5) Ricardo/ul Urine Nitrite (NEGATIVE) Urine Bilirubin (NEGATIVE) Urine Urobilinogen (0-1) mg/dL Ur Leukocyte Esterase (NEGATIVE) Urine WBC (Auto) (0-5) /HPF Urine RBC (Auto) (0-2) /HPF U Epithel Cells (Auto) (FEW) /HPF Urine Bacteria (Auto) (NEGATIVE) /HPF Urine Mucus (Auto) (NEGATIVE) /HPF Urine Culture Reflexed (NO) Urine Glucose (NEGATIVE) mg/dL Urine HCG, Qual NEGATIVE (Negative) Urine Opiates Level (NEGATIVE) Ur Methadone (NEGATIVE) Urine Barbiturates (NEGATIVE) Ur Phencyclidine (PCP) (NEGATIVE) Urine Amphetamine (NEGATIVE) U Benzodiazepine Level (NEGATIVE) Urine Cocaine (NEGATIVE) Urine Marijuana (THC) (NEGATIVE) 05/06/20 05/06/20 Range/Units 17:59 17:59 WBC (4.0-10.5) K/mm3 RBC (4.1-5.4) M/mm3 Hgb (12.0-16.0) gm/dl Hct (35-47) % MCV (78-100) fl MCH (26-32) pg MCHC (32-36) g/dl RDW (11.5-14.0) % Plt Count (150-450) K/mm3 MPV (7.5-11.0) fl Gran % (36.0-66.0) % Eos # (Auto) (0-0.5) Absolute Lymphs (auto) (1.0-4.6) Absolute Monos (auto) (0.0-1.3) Lymphocytes % (24.0-44.0) % Monocytes % (0.0-12.0) % Eosinophils % (0.00-5.0) % Basophils % (0.0-0.4) % Absolute Granulocytes (1.4-6.9) Basophils # (0-0.4) D-Dimer (215-500) ng/mL Sodium (137-145) mmol/L Potassium (3.5-5.1) mmol/L Chloride (98-107) mmol/L Carbon Dioxide (22-30) mmol/L Anion Gap (5-15) MEQ/L BUN (7-17) mg/dL Creatinine (0.52-1.04) mg/dL Estimated GFR ML/MIN Glucose (74-106) mg/dL Calcium (8.4-10.2) mg/dL Magnesium (1.6-2.3) mg/dL Total Bilirubin (0.2-1.3) mg/dL AST (14-36) U/L ALT (0-35) U/L Alkaline Phosphatase (38-126) U/L Troponin I (0.000-0.034) ng/mL NT-Pro-B Natriuret Pep (0-450) pg/mL Serum Total Protein (6.3-8.2) g/dL Albumin (3.5-5.0) g/dL Thyroxine (T4) (5.53-10.96) ug/dL TSH 3rd Generation (0.47-4.68) mIU/L Urine Color YELLOW (YELLOW) Urine Appearance CLEAR (CLEAR) Urine pH 6.0 (5-6) Ur Specific [place] 1.005 (1.005-1.025) Urine Protein NEGATIVE (Negative) Urine Ketones NEGATIVE (NEGATIVE) Urine Blood NEGATIVE (0-5) Ricardo/ul Urine Nitrite NEGATIVE (NEGATIVE) Urine Bilirubin NEGATIVE (NEGATIVE) Urine Urobilinogen NEGATIVE (0-1) mg/dL Ur Leukocyte Esterase NEGATIVE (NEGATIVE) Urine WBC (Auto) 0-2 (0-5) /HPF Urine RBC (Auto) NONE (0-2) /HPF U Epithel Cells (Auto) NONE (FEW) /HPF Urine Bacteria (Auto) RARE (NEGATIVE) /HPF Urine Mucus (Auto) SLIGHT (NEGATIVE) /HPF Urine Culture Reflexed NO (NO) Urine Glucose NEGATIVE (NEGATIVE) mg/dL Urine HCG, Qual (Negative) Urine Opiates Level NEGATIVE (NEGATIVE) Ur Methadone NEGATIVE (NEGATIVE) Urine Barbiturates NEGATIVE (NEGATIVE) Ur Phencyclidine (PCP) NEGATIVE (NEGATIVE) Urine Amphetamine NEGATIVE (NEGATIVE) U Benzodiazepine Level NEGATIVE (NEGATIVE) Urine Cocaine NEGATIVE (NEGATIVE) Urine Marijuana (THC) NEGATIVE (NEGATIVE) - Progress Progress: improved, re-examined Progress Note: 05/06/20 21:43 Chest x-ray shows no acute cardiopulmonary process. CTA of the chest with contrast shows no central pulmonary emboli. There is no other acute process present. Radiologist comments that this is not an ideal contrast study. 05/06/20 21:44 Medical decision making: This patient has no obvious acute cardiopulmonary process. Patient does sense palpitations although we did not appreciate them well on the monitor or on the EKG. We will send the patient home with a Holter monitor if they is available. Otherwise we will discharge her to home and have her make an appointment with respiratory therapy to obtain one. Counseled pt/family regarding: lab results, diagnosis, need for follow-up, rad results - Departure Departure Disposition: Home Clinical Impression: Palpitations Condition: Stable Critical Care Time: No Referrals: PATRICIA LIN MD [Primary Care Provider] - Additional Instructions: Wear the Holter monitor and follow the instructions. Follow-up with your primary care physician for further management.
[2020-05-06 18:26] LABS: Appearance CLEAR (CLEAR); Bacteria RARE /HPF (NEGATIVE); Bilirubin NEGATIVE (NEGATIVE); Blood NEGATIVE Ery/ul (0-5); Glucose NEGATIVE (NEGATIVE); Ketones NEGATIVE (NEGATIVE); Leukocyte Esterase NEGATIVE (NEGATIVE); Mucus SLIGHT /HPF (NEGATIVE); Nitrite NEGATIVE (NEGATIVE); Protein,Urine Dip NEGATIVE (Negative); Specific Gravity 1.005 (1.005-1.025); Urobilinogen NEGATIVE mg/dL (0-1); WBC 0-2 /HPF (0-5)
[2020-05-06 18:35] LABS: Absolute Neutrophil Ct (ANC) 4.64 (1.4-6.9); BASOPHIL % 0.1 % (0.0-0.4); Basophil (Absolute #) 0.01 (0-0.4); Eosinophil % 1.6 % (0.00-5.0); Eosinophil (Absolute #) 0.11 (0-0.5); Hematocrit 42.3 % (35-47); Hemoglobin 13.9 gm/dl (12.0-16.0); Lymphocyte (Absolute #) 1.75 (1.0-4.6); Lymphocytes % 25.8 % (24.0-44.0); Mean Cell Volume 84.3 fl (78-100); Mean Corpuscular Hemoglobin 27.7 pg (26-32); Mean Corpuscular Hgb Concent. 32.9 g/dl (32-36); Mean Platelet Volume 11.1 fl (7.5-11.0); Monocyte (Absolute #) 0.28 (0.0-1.3); Monocytes % 4.1 % (0.0-12.0); Neutrophil % 68.4 % (36.0-66.0); Platelet Count 214 K/mm3 (150-450); Red Blood Count 5.02 M/mm3 (4.1-5.4); Red Cell Distribution Width 13.4 % (11.5-14.0); White Blood Count 6.8 K/mm3 (4.0-10.5)
[2020-05-06 18:36] LABS: Amphetamine,Urine NEGATIVE (NEGATIVE); Barbiturate,Urine NEGATIVE (NEGATIVE); Benzodiazepine,Urine NEGATIVE (NEGATIVE); Cocaine,Urine NEGATIVE (NEGATIVE); Methadone,Urine NEGATIVE (NEGATIVE); Opiate,Urine NEGATIVE (NEGATIVE); PCP,Urine NEGATIVE (NEGATIVE); THC,Urine NEGATIVE (NEGATIVE)
[2020-05-06 18:49] LABS: ALBUMIN 4.3 g/dL (3.5-5.0); ALKALINE PHOSPHATASE 80 U/L (38-126); ANION GAP 10.4 MEQ/L (5-15); BLOOD UREA NITROGEN 6 mg/dL (7-17); CHLORIDE 103 mmol/L (98-107); Calcium 9.8 mg/dL (8.4-10.2); Carbon Dioxide 27 mmol/L (22-30); EST GLOMERULAR FILTRATION RATE > 60.0 ML/MIN; Glucose 83 mg/dL (74-106); MAGNESIUM 1.9 mg/dL (1.6-2.3); NT PRO BNP 24.4 pg/mL (0-450); Potassium 3.7 mmol/L (3.5-5.1); SGOT/AST 24 U/L (14-36); SGPT/ALT 19 U/L (0-35); SODIUM 137 mmol/L (137-145); Total Protein 7.3 g/dL (6.3-8.2)
[2020-05-06 19:13] LABS: TSH, 3RD Generation 2.72 mIU/L (0.47-4.68)
[2020-05-06] MEDS ORDERED: Sodium Chloride 0.9% 500 ML 500 ML IV ONE ×2 (20:02→20:18)
[2020-05-06 22:03] VITALS: BP 116/94
[2020-05-06 22:07] VITALS: PULSE 84; O2SAT 98
--- NOTE | 2020-05-07 08:57 | XRAY ---
Indication: Irregular heart rate. Elevated d-dimer. Multiple contiguous axial images obtained through the chest using 80 cc Isovue 370 contrast and PE protocol. Comparison: CT chest without contrast April 05, 2016. There is suboptimal opacification of the pulmonary arteries limiting evaluation for pulmonary embolus. No obvious central pulmonary embolus. Heart is not enlarged. Aorta is normal course and caliber. No pathologic mediastinal/hilar lymphadenopathy. Lungs demonstrates minimal bilateral dependent atelectasis. No suspicious pulmonary mass/nodule, infiltrate, or effusion. Bony thorax intact. Limited upper abdomen again demonstrates fatty liver. There is been interval cholecystectomy. Impression: 1. Pulmonary embolus evaluation limited due to suboptimal contrast opacification. No central pulmonary embolus. 2. No acute cardiopulmonary abnormalities. 3. Stable incidental fatty liver.
--- NOTE | 2020-05-07 09:01 | XRAY ---
Indication: Palpitations. Comparison: March 24, 2016. Portable chest again demonstrates normal heart and lungs. Bony thorax intact. No new/acute findings.
== END 2020-05-06 22:06 | disposition home or self-care (01) ==
LOC: ED 17:40
DX: R00.2 Palpitations (principal)
CPT/HCPCS: 36000; 36415; 71045; 71260; 80053; 80307; 81001; 83735; 83880; 84436; 84443; 84484; 84703; 85025; 85379; 93005; 93041; 94760; 99284

== ENCOUNTER 2022-05-16 04:41 | Emergency (ER) | payer OTHER ==
[2022-05-16] MEDS ORDERED: Zofran 4 MG/2 ML VIAL IV ONE (05:08)
[2022-05-16] MEDS ORDERED: Sodium Chloride 0.9% 1000 ML 1,000 ML IV STA ×2 (05:08→08:38)
[2022-05-16] MEDS ORDERED: MORPHINE SULFATE 2 MG INJ IV ONE (05:08)
[2022-05-16] MEDS ORDERED: MORPHINE SULFATE 2 MG INJ ONE (05:17)
[2022-05-16] MEDS ORDERED: Sodium Chloride 0.9% 1000 ML 1,000 ML ONE ×2 (05:17→08:36)
[2022-05-16] MEDS ORDERED: Zofran 4 MG/2 ML VIAL ONE (05:17)
--- NOTE | 2022-05-16 05:20 | ERPHSYRPT ---
- History of Present Illness Source: patient Exam Limitations: no limitations Patient Subjective Stated Complaint: abd pain, diarrhea, nausea, indigestion Triage Nursing Assessment: pt ambulated into ER without diff, mom at bedside. Pt c/o abd pain to RLQ, pain shooting straight thru to lower back on rt side. Abd soft with active bs x4 quad, tender on palpation. Pt c/o nausea, diarrhea and reflux but denies any vomiting. Pt c/o pain worsens when taking a deep breath. Timing/Duration: today Severity: moderate Modifying Factors: Improves With: nothing Associated Symptoms: No shortness of breath, No chills, No fever Hx Tetanus, Diphtheria Vaccination/Date Given: Yes Hx Influenza Vaccination/Date Given: Yes Hx Pneumococcal Vaccination/Date Given: No Immunizations Up to Date: Yes <YG PERDUE - Last Filed: 05/16/22 06:41> <LUCIEN MONTES - Last Filed: 05/16/22 09:58> - History of Present Illness Time Seen by Provider: 05/16/22 05:13 Physician History: Patient is a 37-year-old female presents to our ED for evaluation of abdominal pain. Patient experienced diarrhea yesterday. Abdominal pain began 2-day as intermittent at the right side of her periumbilical region. Pain then gradually progressed to constant. Pain associated with nausea. No vomiting. patient took Tylenol Zofran at approximately 1 AM. Symptoms progressed. Pain is now constant. Pain tends to shoot towards her right lower back. No trauma. No fever. Constant nausea. Symptoms are moderate in intensity. No specific worsening improving factors. Patient denies a history of the same. She voices no other complaints concerns at this time. Portions of this note were created with voice recognition technology. There may be grammatical, spelling, punctuation or sound alike errors (YG PERDUE) Allergies/Adverse Reactions: No Known Drug Allergies Allergy (Verified 05/16/22 04:59) Home Medications: Citalopram Hydrobromide 20 mg* [ceLEXa 20 MG] 20 mg PO HS 07/23/19 [History] PANTOPRAZOLE 40 mg Tablet [Protonix 40MG Tablet] 40 mg PO QAM 02/13/20 [History] Semaglutide [Ozempic] 1 mg SQ WEEKLY 02/13/20 [History] Travel Risk - International Travel Have you traveled outside of the country in past 3 weeks: No - Coronavirus Screening Are you exhibiting any of the following symptoms?: Yes Symptoms: Vomiting/Diarrhea Close contact with a COVID-19 positive Pt in past 14-21 Days: No - Vaccine Status Have you recieved a Covid-19 vaccination: Yes 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 <YG PERDUE - Last Filed: 05/16/22 06:41> - Review of Systems Constitutional: No Symptoms, No Fever, No Chills Eyes: No Symptoms Ears, Nose, & Throat: No Symptoms Respiratory: No Symptoms, No Cough, No Dyspnea Cardiac: No Symptoms, No Chest Pain, No Edema, No Syncope Abdominal/Gastrointestinal: No Symptoms, No Abdominal Pain, No Nausea, No Vomiting, No Diarrhea Genitourinary Symptoms: No Symptoms, No Dysuria Musculoskeletal: No Symptoms, No Back Pain, No Neck Pain Skin: No Symptoms, No Rash Neurological: No Symptoms, No Dizziness, No Focal Weakness, No Sensory Changes Psychological: No Symptoms Endocrine: No Symptoms Hematologic/Lymphatic: No Symptoms Immunological/Allergic: No Symptoms All Other Systems: Reviewed and Negative <YG PERDUE - Last Filed: 05/16/22 06:41> - Past Medical History Pertinent Past Medical History: Yes Neurological History: No Pertinent History ENT History: Other Cardiac History: No Pertinent History Respiratory History: No Pertinent History Endocrine Medical History: Diabetes Type II Musculoskeletal History: No Pertinent History GI Medical History: GERD, Gallbladder Disease History: No Pertinent History Psycho-Social History: Anxiety Female Reproductive Disorders: No Pertinent History Other Medical History: sinus problems - Past Surgical History Past Surgical History: Yes Neuro Surgical History: No Pertinent History Cardiac: No Pertinent History Respiratory: No Pertinent History Gastrointestinal: Cholecystectomy, Other Female Surgical History: Section Other Surgical History: sinus surgery. abdominalplasty - Social History Smoking Status: Never smoker Exposure to second hand smoke: No Drug Use: none Patient Lives Alone: No - Female History Hx Now: No <YG PERDUE - Last Filed: 05/16/22 06:41> - Physical Exam General Appearance: no apparent distress, alert Eye Exam: PERRL/EOMI, eyes nml inspection Ears, Nose, Throat Exam: normal ENT inspection, TMs normal, pharynx normal, moist mucous membranes Neck Exam: normal inspection, non-tender, supple, full range of motion Respiratory Exam: normal breath sounds, lungs clear, airway intact, No respiratory distress Cardiovascular Exam: regular rate/rhythm, normal heart sounds, normal peripheral pulses Gastrointestinal/Abdomen Exam: soft, normal bowel sounds, tenderness, other (Tenderness to palpation just right to the umbilicus.), No mass Pelvic Exam: not done Rectal Exam: deferred Back Exam: normal inspection, normal range of motion, No CVA tenderness, No vertebral tenderness Extremity Exam: normal inspection, normal range of motion, pelvis stable Neurologic Exam: alert, oriented x 3, cooperative, boner meat II-XII nml as tested, normal mood/affect, nml cerebellar function, nml station & gait, sensation nml, No motor deficits Skin Exam: normal color, warm, dry, No rash Lymphatic Exam: No adenopathy SpO2 Interpretation: normal SpO2: 98 O2 Delivery: Room Air <[facility] Filed: 05/16/22 06:41> - Nursing Vital Signs Nursing Vital Signs: Initial Vital Signs Temperature 97.7 F 05/16/22 04:51 Pulse Rate 82 05/16/22 04:51 Respiratory Rate 16 05/16/22 04:51 Blood Pressure 136/98 05/16/22 04:51 O2 Sat by Pulse Oximetry 98 05/16/22 04:51 Pain Scale Pain Intensity 4 - Course Nursing assessment & vital signs reviewed: Yes <[facility] Filed: 05/16/22 06:41> Ordered Tests: Active Orders 24 hr Category Date Time Status IV Insertion STAT Care 05/16/22 05:08 Active ABDOMEN AND PELVIS W/0 CONTRAS [CT] Stat Exams 05/16/22 05:09 Completed CBC W DIFF Stat Lab 05/16/22 05:15 Completed CMP Stat Lab 05/16/22 05:15 Completed HCG,QUALITATIVE URINE Stat Lab 05/16/22 05:16 Completed LIPASE Stat Lab 05/16/22 05:15 Completed TROPONIN Q4H Lab 05/16/22 05:15 Completed TROPONIN Q4H Lab 05/16/22 09:15 Ordered TROPONIN Q4H Lab 05/16/22 13:15 Ordered UA W/RFX CULTURE Stat Lab 05/16/22 05:16 Completed Medication Summary Discontinued Medications Generic Name Dose Route Start Last Admin Trade Name Zayra PRN Reason Stop Dose Admin Hydromorphone HCl 0.5 mg 05/16/22 07:04 05/16/22 07:15 Hydromorphone 1 Mg/1ml Inj 1 Mg/Ml Syringe IV 05/16/22 07:05 1 mg STAT ONE Administration Hydromorphone HCl Confirm 05/16/22 07:13 Hydromorphone 1 Mg/1ml Inj 1 Mg/Ml Syringe Administered 05/16/22 07:14 Dose 1 mg .ROUTE .STK-MED ONE Hydromorphone HCl 1 mg 05/16/22 08:21 05/16/22 09:16 Hydromorphone 1 Mg/1ml Inj 1 Mg/Ml Syringe IV 05/16/22 08:22 Not Given STAT ONE Sodium Chloride 1,000 mls @ 999 mls/hr 05/16/22 05:08 05/16/22 07:31 Sodium Chloride 0.9% 1000 Ml IV 05/16/22 06:08 Infused .Q1H1M STA Infusion Sodium Chloride Confirm 05/16/22 05:17 Sodium Chloride 0.9% 1000 Ml Administered 05/16/22 05:18 Dose 1,000 mls @ ud .ROUTE .STK-MED ONE Sodium Chloride Confirm 05/16/22 08:36 Sodium Chloride 0.9% 1000 Ml Administered 05/16/22 08:37 Dose 1,000 mls @ ud .ROUTE .STK-MED ONE Sodium Chloride 1,000 mls @ 999 mls/hr 05/16/22 08:38 05/16/22 09:15 Sodium Chloride 0.9% 1000 Ml IV 05/16/22 09:38 999 mls/hr .Q1H1M STA Administration Ketorolac Tromethamine 30 mg 05/16/22 08:22 05/16/22 08:27 Ketorolac Tromethamine 30 Mg/Ml Inj IV 05/16/22 08:23 30 mg STAT ONE Administration Ketorolac Tromethamine Confirm 05/16/22 08:26 Ketorolac Tromethamine 30 Mg/Ml Inj Administered 05/16/22 08:27 Dose 30 mg .ROUTE .STK-MED ONE Morphine Sulfate 2 mg 05/16/22 05:08 05/16/22 05:20 Morphine Sulfate 2 Mg/Ml Inj IV 05/16/22 05:09 2 mg STAT ONE Administration Morphine Sulfate Confirm 05/16/22 05:17 Morphine Sulfate 2 Mg/Ml Inj Administered 05/16/22 05:18 Dose 2 mg .ROUTE .STK-MED ONE Morphine Sulfate Confirm 05/16/22 06:28 Morphine Sulfate 4 Mg/Ml Injection Administered 05/16/22 06:29 Dose 4 mg .ROUTE .STK-MED ONE Morphine Sulfate 4 mg 05/16/22 06:40 05/16/22 06:41 Morphine Sulfate 4 Mg/Ml Injection IV 05/16/22 06:41 4 mg STAT ONE Administration Ondansetron HCl 4 mg 05/16/22 05:08 05/16/22 05:20 Ondansetron Hcl 4 Mg/2 Ml Vial IV 05/16/22 05:09 4 mg STAT ONE Administration Ondansetron HCl Confirm 05/16/22 05:17 Ondansetron Hcl 4 Mg/2 Ml Vial Administered 05/16/22 05:18 Dose 4 mg .ROUTE .STK-MED ONE Pantoprazole Sodium Confirm 05/16/22 08:30 Pantoprazole 40 Mg Vial Administered 05/16/22 08:31 Dose 40 mg IV .STK-MED ONE Pantoprazole Sodium 40 mg 05/16/22 08:38 05/16/22 09:16 Pantoprazole 40 Mg Vial IV 05/16/22 08:39 40 mg STAT ONE Administration Lab/Rad Data: Laboratory Result Diagrams 05/16/22 05:15 05/16/22 05:15 Laboratory Results 05/16/22 05/16/22 05/16/22 Range/Units 05:16 05:16 05:15 WBC (4.0-10.5) x10^3/uL RBC (4.1-5.4) x10^6/uL Hgb (12.0-16.0) g/dL Hct (35-47) % MCV (78-100) fL MCH (26-32) pg MCHC (32-36) g/dL RDW (11.5-14.0) % Plt Count (150-450) x10^3/uL MPV (7.5-11.0) fL Gran % (36.0-66.0) % Immature Gran % (Auto) (0.00-0.4) % Nucleat RBC Rel Count (0.00-0.1) % Eos # (Auto) (0-0.5) x10^3/uL Immature Gran # (Auto) (0.00-0.03) x10^3u/L Absolute Lymphs (auto) (1.0-4.6) x10^3/uL Absolute Monos (auto) (0.0-1.3) x10^3/uL Absolute Nucleated RBC (0.00-0.01) x10^3u/L Lymphocytes % (24.0-44.0) % Monocytes % (0.0-12.0) % Eosinophils % (0.00-5.0) % Basophils % (0.0-0.4) % Absolute Granulocytes (1.4-6.9) x10^3/uL Basophils # (0-0.4) x10^3/uL Sodium (137-145) mmol/L Potassium (3.5-5.1) mmol/L Chloride (98-107) mmol/L Carbon Dioxide (22-30) mmol/L Anion Gap (5-15) MEQ/L BUN (7-17) mg/dL Creatinine (0.52-1.04) mg/dL Estimated GFR ML/MIN Glucose (74-106) mg/dL Calcium (8.4-10.2) mg/dL Total Bilirubin (0.2-1.3) mg/dL AST (14-36) U/L ALT (0-35) U/L Alkaline Phosphatase (38-126) U/L Troponin I < 0.012 (0.000-0.034) ng/mL Serum Total Protein (6.3-8.2) g/dL Albumin (3.5-5.0) g/dL Lipase (23-300) U/L Urinalys Dipstick Clnc MAIN LAB Urine Color YELLOW (YELLOW) Urine Appearance SLIGHTLY CLOUDY A (CLEAR) Urine pH 6.5 (5-6) Ur Specific [place] 1.025 (1.005-1.025) POC Urine Protein Conf NEGATIVE (Negative) Urine Ketones NEGATIVE (NEGATIVE) Urine Nitrite NEGATIVE (NEGATIVE) Urine Bilirubin NEGATIVE (NEGATIVE) Urine Urobilinogen 0.2 (0-1) mg/dL Urine Leukocytes NEGATIVE (NEGATIVE) Urine WBC (Auto) 0-2 (0-5) /HPF Urine RBC (Auto) 0-2 (0-2) /HPF U Epithel Cells (Auto) RARE (FEW) /HPF Urine Bacteria (Auto) RARE (NEGATIVE) /HPF Urine RBC NEGATIVE (0-5) Ricardo/ul Urine Mucus (Auto) SLIGHT A (NEGATIVE) /HPF Ur Culture Indicated? NO Urine Glucose NEGATIVE (NEGATIVE) mg/dL Urine HCG, Qual NEGATIVE (Negative) Influenza Type A Ag (NEGATIVE) Influenza Type B Ag (NEGATIVE) RSV (PCR) (Negative) SARS-CoV-2 (PCR) (NEGATIVE) 05/16/22 05/16/22 05/16/22 Range/Units 05:15 05:15 05:00 WBC 7.4 (4.0-10.5) x10^3/uL RBC 4.87 (4.1-5.4) x10^6/uL Hgb 13.2 (12.0-16.0) g/dL Hct 41.8 (35-47) % MCV 85.8 (78-100) fL MCH 27.1 (26-32) pg MCHC 31.6 L (32-36) g/dL RDW 12.8 (11.5-14.0) % Plt Count 217 (150-450) x10^3/uL MPV 11.0 (7.5-11.0) fL Gran % 67.6 H (36.0-66.0) % Immature Gran % (Auto) 0.1 (0.00-0.4) % Nucleat RBC Rel Count 0.0 (0.00-0.1) % Eos # (Auto) 0.23 (0-0.5) x10^3/uL Immature Gran # (Auto) 0.01 (0.00-0.03) x10^3u/L Absolute Lymphs (auto) 1.83 (1.0-4.6) x10^3/uL Absolute Monos (auto) 0.31 (0.0-1.3) x10^3/uL Absolute Nucleated RBC 0.00 (0.00-0.01) x10^3u/L Lymphocytes % 24.7 (24.0-44.0) % Monocytes % 4.2 (0.0-12.0) % Eosinophils % 3.1 (0.00-5.0) % Basophils % 0.3 (0.0-0.4) % Absolute Granulocytes 5.02 (1.4-6.9) x10^3/uL Basophils # 0.02 (0-0.4) x10^3/uL Sodium 134 L (137-145) mmol/L Potassium 3.7 (3.5-5.1) mmol/L Chloride 104 (98-107) mmol/L Carbon Dioxide 25 (22-30) mmol/L Anion Gap 8.3 (5-15) MEQ/L BUN 8 (7-17) mg/dL Creatinine 0.58 (0.52-1.04) mg/dL Estimated GFR > 60.0 ML/MIN Glucose 97 (74-106) mg/dL Calcium 8.6 (8.4-10.2) mg/dL Total Bilirubin 0.40 (0.2-1.3) mg/dL AST 26 (14-36) U/L ALT 27 (0-35) U/L Alkaline Phosphatase 64 (38-126) U/L Troponin I (0.000-0.034) ng/mL Serum Total Protein 7.0 (6.3-8.2) g/dL Albumin 3.9 (3.5-5.0) g/dL Lipase 130 (23-300) U/L Urinalys Dipstick Clnc Urine Color (YELLOW) Urine Appearance (CLEAR) Urine pH (5-6) Ur Specific [place] (1.005-1.025) POC Urine Protein Conf (Negative) Urine Ketones (NEGATIVE) Urine Nitrite (NEGATIVE) Urine Bilirubin (NEGATIVE) Urine Urobilinogen (0-1) mg/dL Urine Leukocytes (NEGATIVE) Urine WBC (Auto) (0-5) /HPF Urine RBC (Auto) (0-2) /HPF U Epithel Cells (Auto) (FEW) /HPF Urine Bacteria (Auto) (NEGATIVE) /HPF Urine RBC (0-5) Ricardo/ul Urine Mucus (Auto) (NEGATIVE) /HPF Ur Culture Indicated? Urine Glucose (NEGATIVE) mg/dL Urine HCG, Qual (Negative) Influenza Type A Ag NEGATIVE (NEGATIVE) Influenza Type B Ag NEGATIVE (NEGATIVE) RSV (PCR) NEGATIVE (Negative) SARS-CoV-2 (PCR) NEGATIVE (NEGATIVE) - Progress Progress: improved Counseled pt/family regarding: lab results, diagnosis, rad results <YG PERDUE - Last Filed: 05/16/22 06:41> <LUCIEN MONTES - Last Filed: 05/16/22 09:58> - Progress Progress Note: 05/16/22 08:42 CT scan of the abdomen pelvis without contrast shows a right 4.7 cm ovarian cyst. No other acute intra-abdominal or intrapelvic findings. No evidence of inflammation or fluid present. 05/16/22 08:[address] Crane of the [facility] radiologist reading has an additional finding of ileus versus enterocolitis. 05/16/22 09:19 Patient states that her pain and symptoms have nearly completely resolved after injection of Toradol intravenously (LUCIEN MONTES) <YG PERDUE - Last Filed: 05/16/22 06:41> - Departure Departure Disposition: Home Critical Care Time: No <LUCIEN MONTES - Last Filed: 05/16/22 09:58> - Departure Clinical Impression: Right ovarian cyst, Enterocolitis Condition: Stable Referrals: PATRICIA LIN MD [Primary Care Provider] - Follow up/PCP as directed Additional Instructions: Drink plenty of clear liquids. Take your medication as prescribed. Follow-up with your primary care physician for further evaluation and management including outpatient ultrasound of the ovarian cyst if indicated. Prescriptions: Ondansetron ODT 4 MG [Zofran Odt 4 mg] 4 mg PO Q6H PRN PRN #10 tablet PRN Reason: Vomiting Metronidazole 500 mg [Flagyl 500 MG] 500 mg PO TID #21 tablet Ketorolac Trometh 10 mg Tab [TORAdol 10 MG TABLET] 10 mg PO Q8H #10 tablet
[2022-05-16 05:22] LABS: Absolute Neutrophil Ct (ANC) 5.02 x10^3/uL (1.4-6.9); Basophil (Absolute #) 0.02 x10^3/uL (0-0.4); Eosinophil % 3.1 % (0.00-5.0); Eosinophil (Absolute #) 0.23 x10^3/uL (0-0.5); Hematocrit 41.8 % (35-47); Hemoglobin 13.2 g/dL (12.0-16.0); Lymphocyte (Absolute #) 1.83 x10^3/uL (1.0-4.6); Lymphocytes % 24.7 % (24.0-44.0); Mean Cell Volume 85.8 fL (78-100); Mean Corpuscular Hemoglobin 27.1 pg (26-32); Mean Corpuscular Hgb Concent. 31.6 g/dL (32-36); Monocyte (Absolute #) 0.31 x10^3/uL (0.0-1.3); Monocytes % 4.2 % (0.0-12.0); Neutrophil % 67.6 % (36.0-66.0); Platelet Count 217 x10^3/uL (150-450); Red Blood Count 4.87 x10^6/uL (4.1-5.4); Red Cell Distribution Width 12.8 % (11.5-14.0); White Blood Count 7.4 x10^3/uL (4.0-10.5)
[2022-05-16 05:24] LABS: Appearance SLIGHTLY CLOUDY (CLEAR); Bilirubin NEGATIVE (NEGATIVE); Glucose NEGATIVE (NEGATIVE); Ketones NEGATIVE (NEGATIVE)
[2022-05-16 05:25] LABS: Dipstick done @ ? MAIN LAB; Nitrite NEGATIVE (NEGATIVE); Ph 6.5 (5-6); Protein,Urine Dip NEGATIVE (Negative); RBC NEGATIVE Ery/ul (0-5); Specific Gravity 1.025 (1.005-1.025); Urobilinogen 0.2 mg/dL (0-1)
[2022-05-16 05:27] LABS: Bacteria RARE /HPF (NEGATIVE); Epithelial Cells RARE /HPF (FEW); Mucus SLIGHT /HPF (NEGATIVE); RBC 0-2 /HPF (0-2); WBC 0-2 /HPF (0-5)
[2022-05-16 05:30] LABS: Urine Cultured Indicated? NO
[2022-05-16 05:36] LABS: ALBUMIN 3.9 g/dL (3.5-5.0); ALKALINE PHOSPHATASE 64 U/L (38-126); ANION GAP 8.3 MEQ/L (5-15); BLOOD UREA NITROGEN 8 mg/dL (7-17); CHLORIDE 104 mmol/L (98-107); Calcium 8.6 mg/dL (8.4-10.2); Carbon Dioxide 25 mmol/L (22-30); Creatinine 1 0.58 mg/dL (0.52-1.04); EST GLOMERULAR FILTRATION RATE > 60.0 ML/MIN; Glucose 97 mg/dL (74-106); LIPASE 130 U/L (23-300); Potassium 3.7 mmol/L (3.5-5.1); SGOT/AST 26 U/L (14-36); SGPT/ALT 27 U/L (0-35); SODIUM 134 mmol/L (137-145)
[2022-05-16] MEDS ORDERED: MORPHINE SULFATE 4 MG INJ ONE (06:28)
[2022-05-16] MEDS ORDERED: MORPHINE SULFATE 4 MG INJ IV ONE (06:40)
[2022-05-16] MEDS ORDERED: Hydromorphone 1 mg/ml Injection IV ONE ×2 (07:04→08:21)
[2022-05-16] MEDS ORDERED: Hydromorphone 1 mg/ml Injection ONE (07:13)
[2022-05-16] MEDS ORDERED: TORAdol 30 mg Injection IV ONE (08:22)
[2022-05-16] MEDS ORDERED: TORAdol 30 mg Injection ONE (08:26)
[2022-05-16] MEDS ORDERED: PROTONIX 40 MG IV IV ONE ×2 (08:30→08:38)
--- NOTE | 2022-05-16 08:47 | XRAY ---
Indication: Right upper quadrant pain, nausea, and diarrhea. Multiple contiguous axial images obtained through the abdomen and pelvis without contrast. Comparison: None Lung bases clear. Heart not enlarged. Stomach is distended with food/fluid. Noncontrasted stomach and bowel loops nonobstructed with normal appendix. Mild fluid distended small and large bowel loops with fluid leveling, ileus versus enterocolitis. 4.7 cm right ovary cyst. Previous cholecystectomy. No free fluid/air. Remaining liver, pancreas, spleen, adrenal glands, kidneys, ureters, bladder, uterus, and aorta are unremarkable for noncontrast exam. Osseous structures intact. No ventral or inguinal hernias. Impression: 1. Mild fluid distended small and large bowel loops with fluid leveling. Rule out ileus versus enterocolitis. 2. 4.7 cm right ovary cyst better evaluated with sonogram if clinically warranted. 3. Remaining CT abdomen/pelvis without contrast exam is negative. Comment: Preliminary interpretation made by [facility]. No critical discrepancy.
[2022-05-16 09:36] LABS: INFLUENZA A NEGATIVE (NEGATIVE); INFLUENZA B NEGATIVE (NEGATIVE); RESPIRATORY SYNCTIAL VIRUS NEGATIVE (Negative); SARS-CoV-2 Xpert Express NEGATIVE (NEGATIVE)
[2022-05-16 10:34] VITALS: BP 103/73; PULSE 70; O2SAT 96
== END 2022-05-16 10:33 | disposition home or self-care (01) ==
LOC: ED 04:41
DX: N83.201 Unspecified ovarian cyst, right side (principal); K52.9 Noninfective gastroenteritis and colitis, unspecified; R10.33 Periumbilical pain; R11.0 Nausea; E11.9 Type 2 diabetes mellitus without complications; Z79.85 Long-term (current) use of injectable non-insulin antidiabetic drugs; Z79.899 Other long term (current) drug therapy
CPT/HCPCS: 0241U; 36000; 36415; 74176; 80053; 81015; 81025; 83690; 84484; 85025; 96360; 96374; 96375; 96376; 99284; J1170; J1885; J2270; J2405

== ENCOUNTER 2023-03-31 22:14 | Emergency (ER) | payer SELFPAY ==
[2023-03-31 23:10] VITALS: TEMP 98.3
[2023-03-31 23:53] LABS: HCG SERUM TEST NEGATIVE (NEGATIVE)
[2023-04-01] MEDS ORDERED: NORCO 5/325 MG PO ONE (00:13)
[2023-04-01] MEDS ORDERED: NORCO 5/325 MG ONE (00:19)
[2023-04-01 00:48] VITALS: BP 107/76; PULSE 72; RESP 16; O2SAT 99
[2023-04-01] MEDS ORDERED: Cyclobenzaprine 10 MG PO ONE (01:04)
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
[2023-04-01] MEDS ORDERED: Cyclobenzaprine 10 MG ONE (01:12)
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
== END 2023-04-01 01:35 | disposition home or self-care (01) ==
LOC: ED 22:14
DX: S39.002A Unspecified injury of muscle, fascia and tendon of lower back, initial encounter (principal); S76.001A Unspecified injury of muscle, fascia and tendon of right hip, initial encounter; V50.5XXA Driver of pick-up truck or van injured in collision with pedestrian or animal in traffic accident, initial encounter; E11.9 Type 2 diabetes mellitus without complications; Z79.899 Other long term (current) drug therapy
CPT/HCPCS: 36415; 71046; 72072; 73502; 73590; 84703; 99283; A9270-GY

== ENCOUNTER 2023-05-17 08:54 | Day surgery (SDC) | payer OTHER ==
[2023-05-17] MEDS ORDERED: Depo-Medrol 40 MG/ML IM ONE (08:55)
[2023-05-17] MEDS ORDERED: BUPIVACAINE 0.5% VIAL IJ ONE (08:55)
[2023-05-17 09:16] LABS: HCG URINE TEST NEGATIVE (NEGATIVE)
[2023-05-17] MEDS ORDERED: DIPRIVAN 200 MG/20 ML IV ONE (10:12)
--- NOTE | 2023-05-17 12:03 | XRAY ---
Indication: Bilateral SI joint injection. Intraoperative fluoroscopy provided for 16 seconds. 4 digital spot image submitted for interpretation demonstrates posterior needle tip projecting over the left and right SI joint. Correlate with intraoperative findings/report.
--- NOTE | 2023-05-17 13:06 | XRAY ---
16 seconds of fluoroscopy was used in surgery for a bilateral sacroiliac joint injection.
[2023-05-17] MEDS ORDERED: Lactated Ringers 1,000 ML IV ONE (16:16)
== END 2023-05-17 10:42 | disposition home or self-care (01) ==
LOC: SDC-PAIN 08:54
PROVIDERS: ATTEND Psychiatry & Neurology Pain Medicine
DX: M46.1 Sacroiliitis, not elsewhere classified (principal); Z79.899 Other long term (current) drug therapy
CPT/HCPCS: 27096; 72202; 77002; 81025; J1030; J2704; G0260

== ENCOUNTER 2023-11-14 14:53 | Day surgery (SDC) | payer OTHER ==
[2023-11-14 15:04] LABS: HCG URINE TEST NEGATIVE (NEGATIVE)
[2023-11-14] MEDS ORDERED: DIPRIVAN 200 MG/20 ML IV ONE (16:26)
--- NOTE | 2023-11-14 17:14 | XRAY ---
Indication: Bilateral SI joint and greater trochanter bursa injection. Intraoperative fluoroscopy provided for 40 seconds. 4 digital spot image submitted for interpretation demonstrates posterior needle tips projecting over the left/right SI joints. Additional needle tips lateral to left/right greater trochanters. Small amount of contrast injected for all needle tip placement. Correlate with intraoperative findings/report.
[2023-11-14] MEDS ORDERED: Lactated Ringers 1,000 ML IV ONE (18:52)
--- NOTE | 2023-11-14 20:59 | XRAY ---
40 seconds of fluoroscopy used in surgery for bilateral SIJ injections and bilateral greater trochanteric bursa injections.
== END 2023-11-14 17:03 | disposition home or self-care (01) ==
LOC: SDC-PAIN 14:53
PROVIDERS: ATTEND Psychiatry & Neurology Pain Medicine
DX: M46.1 Sacroiliitis, not elsewhere classified (principal)
CPT/HCPCS: 20610; 27096; 63663; 73521; 77002; 81025; J2704; Q9966; G0260